=== PATIENT | female | born 2000 | race Caucasian/White ===

== ENCOUNTER 2021-04-14 12:44 | Emergency (ER) | payer OTHER ==
[~2021-04-14] VITALS: Ht 160 cm; Wt 89.2 kg
[2021-04-14] MEDS ORDERED: DROSPIRENONE-E1 EACH PO (13:01)
[2021-04-14] MEDS ORDERED: PANTOPRAZOLE SO40 MG PO (13:01)
== END 2021-04-14 15:05 | disposition home or self-care (01) ==
LOC: ED 12:44
DX: R10.11 Right upper quadrant pain (principal); R10.13 Epigastric pain; Z88.1 Allergy status to other antibiotic agents; Z79.899 Other long term (current) drug therapy
CPT/HCPCS: 80053; 81001; 83690; 84703; 85025; 96374; 96375; 99284-25; J1170; J2405; J7030

== ENCOUNTER 2021-08-01 18:58 | Emergency (ER) | payer OTHER ==
[~2021-08-01] VITALS: Ht 160 cm; Wt 88.9 kg
[~2021-08-01 18:58] MED LIST: DROSPIRENONE-E1 EACH PO; PANTOPRAZOLE SO40 MG PO
[2021-08-01] MEDS ORDERED: ESOMEPRAZOLE MA40 MG PO (19:13)
[2021-08-01] MEDS ORDERED: CYCLOBENZAPRINE10 MG PO (23:30)
--- NOTE | 2021-08-02 13:16 | EKG ---
[facility] [address] [facility] [place], [place] [address] Signed Sinus tachycardia Otherwise normal ECG No previous ECGs available Confirmed by SHARON NAGEL MD ([id number]) on 08/02/2021 1:15:52 PM Electronically Signed By: SHARON NAGEL MD 08/02/21 1316 PATIENT NAME: GIOVANNI WILLS Electrocardiogram DATE OF : [birth year] PHYSICIAN: SHARON NAGEL MD REPORT #: [id number] REPORT IS CONFIDENTIAL AND NOT TO BE RELEASED WITHOUT AUTHORIZATION
== END 2021-08-02 00:03 | disposition home or self-care (01) ==
LOC: ED 18:58
DX: R07.89 Other chest pain (principal); K21.9 Gastro-esophageal reflux disease without esophagitis; Z88.1 Allergy status to other antibiotic agents; Z79.899 Other long term (current) drug therapy
CPT/HCPCS: 36415; 71045; 71260; 80053; 83735; 84484; 84703; 85025; 85379; 93005; 93010; 99285-25; J2270; Q9967

== ENCOUNTER 2022-02-14 09:55 | Emergency (ER) | payer OTHER ==
[~2022-02-14] VITALS: Ht 160 cm; Wt 105.2 kg
[~2022-02-14 09:55] MED LIST changes: +CYCLOBENZAPRINE10 MG PO; +ESOMEPRAZOLE MA40 MG PO
[2022-02-14] MEDS ORDERED: MACROBID 100 M100 MG PO (12:42)
== END 2022-02-14 13:41 | disposition home or self-care (01) ==
LOC: ED 09:55
DX: O23.41 Unspecified infection of urinary tract in pregnancy, first trimester (principal); N39.0 Urinary tract infection, site not specified; O20.0 Threatened abortion; K21.9 Gastro-esophageal reflux disease without esophagitis; Z3A.01 Less than 8 weeks gestation of pregnancy; Z79.899 Other long term (current) drug therapy; Z88.1 Allergy status to other antibiotic agents
CPT/HCPCS: 36415; 76801; 76817; 81001; 84702; 86900; 86901; 87088; 96372; 99284-25; J2790

== ENCOUNTER 2023-06-13 23:01 | Observation (INO) | payer OTHER ==
[~2023-06-13] VITALS: Ht 160 cm; Wt 109.0 kg
[~2023-06-13 23:01] MED LIST changes: +MACROBID 100 M100 MG PO
[2023-06-13] MEDS ORDERED: IRON325 M1 PO (23:12)
[2023-06-13] MEDS ORDERED: OMEPRAZOLE20 MG PO (23:12)
[2023-06-13] MEDS ORDERED: SPRINTEC1 EACH PO (23:12)
[2023-06-13] MEDS ORDERED: SERTRALINE HCL100 MG PO (23:12)
[2023-06-13] MEDS ORDERED: ondansetron HCL 4 MG/2 ML VIAL IV ONE ×2 (23:15→23:30)
[2023-06-13 23:27] LABS: BASOPHILS 0.4 % (0-2); EOSINOPHILS 0.8 % (0-6); HEMATOCRIT 38.5 % (35.0-50.0); HEMOGLOBIN 12.3 g/dL (12.0-18.0); MCH 27.8 (27-36); MCHC 32.1 g/dl (30-36); MCV 86.6 fl (81-99); MONOCYTES 8.6 % (0-12); NEUTROPHILS 66.2 % (39-80); PLATELET COUNT 324 K/uL (140-440); RBC 4.44 M/ul (4.3-5.7); RDW 13.8 (10.5-15.0)
[2023-06-13] MEDS ORDERED: MORPHINE SULFATE 4 MG/ML VIAL IV ONE (23:30)
[2023-06-13] MEDS ORDERED: LACTATED RINGER'S 1,000 ML IV ONE (23:30)
[2023-06-13 23:43] LABS: ALBUMIN 2.4 g/dL (3.4-5.0); ALBUMIN/GLOBULIN RATIO 0.45 (1.1-2.4); ANION GAP 13.4 (7-21); BILIRUBIN, TOTAL 0.1 ng/dL (0.2-1.0); BUN/CREATININE RATIO 13.79 (6.0-28.6); CALCIUM 9.4 mg/dL (8.5-10.1); CREATININE, SERUM 0.58 mg/dL (0.55-1.02); POTASSIUM 3.4 mmol/L (3.5-5.1); PROTEIN, TOTAL 7.7 g/dL (6.4-8.2)
[2023-06-13 23:58] LABS: BILIRUBIN, URINE NEGATIVE (negative); BLOOD/HGB, URINE NEGATIVE (Negative); KETONE, URINE NEGATIVE (Negative); LEUK ESTERASE, URINE NEGATIVE (negative); NITRITE, URINE NEGATIVE (negative)
[2023-06-14] MEDS ORDERED: HYDROmorphone HCL 1 MG/ML SYR IV PRN ×3 (01:00→08:30)
[2023-06-14] MEDS ORDERED: DEXTROSE 5% - LACTATED RINGERS 1,000 ML IV SCH ×2 (01:15→08:30)
[2023-06-14] MEDS ORDERED: ondansetron HCL 4 MG/2 ML VIAL IV PRN ×2 (01:15→08:30)
[2023-06-14] MEDS ORDERED: ACETAMINOPHEN 325 MG TAB PO PRN ×2 (01:15→08:45)
[2023-06-14] MEDS ORDERED: levoFLOXacin 750 MG/150 ML BAG IV ONE (01:30)
--- NOTE | 2023-06-14 02:15 | NUR ---
PATIENT BROUGHT TO THE FLOOR FROM THE ER. REPORT GOT FROM LITA LYLES. PATIENT CURRENTLY NPO. ANTIBIOTICS SCHEDULED. PATIENT LAST AT 1800. PATIENT HAS BEEN RUNNING TACHY IN THE ER BUT WHEN SLEEPING IMPROVES PER REPORT GIVEN. PATIENT BROUGHT TO THE FLOOR IN A WHEELCHAIR. PATIENT WAS GIVEN DILADID IN THE ER.
[2023-06-14 02:19] VITALS: BP 127/62
--- NOTE | 2023-06-14 03:06 | NUR ---
PATIENT HAS SECOND BAG OF FLAGYL RUNNING CURRENTLY. PATIENT CAME UP FROM THE ER WITH IT. LEVOFLOXACIN WAS NOT STARTED IN THE ER AND WILL BE STARTED AFTER FLAGYL IS DONE.
[2023-06-14 03:07] VITALS: BP 127/62
--- NOTE | 2023-06-14 03:16 | NUR ---
PATIENT CURRENTLY ASLEEP IN BED LAYING ON HER BACK. IV FLUIDS AND ANTIBIOTICS RUNNING. PATIENT GIVEN FAN. CALL LIGHT WITHIN REACH. REGULAR RESPIRATIONS NOTED.
--- NOTE | 2023-06-14 04:16 | NUR ---
INTO CHECK ON PATIENTS IV SITE SHE ADVISED THAT WHEN SHE HAD HER BABY 8 MONTHS AGO SHE HAD COMPLICATIONS WITH THE IV SITE. IV SITE WORKING WELL, LOOKS WNL. PATIENT WOKE UP AND SHIFTED IN BED WHILE IN THERE. PATIENT ADVISE THIS NURSE SHE IS DOING WELL AND IS ABLE TO GET SOME SLEEP. PATIENT WILL CALL IF SHE NEEDS ANYTHING.
[2023-06-14 05:31] VITALS: BP 141/59
--- NOTE | 2023-06-14 05:32 | NUR ---
PT UTILIZES CALL LIGHT, REQUESTS TO USE THE BATHROOM. PT UP TO BATHROOM AND BACK TO BED WITH ASSISTANCE ONLY TO UNPLUG IV PUMP. PT DENIES FURTHER NEEDS AT THIS TIME. CALL LIGHT IN REACH.
--- NOTE | 2023-06-14 07:10 | NUR ---
RECEIVED REPORT FROM LITA KIMBROUGH. ASSUMING CARE OF PT. PT AWAKE IN BED, GETS UP INDEPENDENTLY TO USE RESTROOM. PT STATES NO FURTHER NEEDS AT THIS TIME, CALL LIGHT WITHIN REACH.
[2023-06-14] MEDS ORDERED: POTASSIUM CHLORIDE 40 MEQ,LIDOCAINE HCL 1% 40 MG in DEXTROSE 5% 500 ML IV ONE (07:30)
--- NOTE | 2023-06-14 07:45 | NUR ---
DR. ARDON AT THE BEDSIDE. PT FAMILY AT THE BEDSIDE. PT REQUESTS PRN PAIN MEDICATION, GIVEN. PT STATES NO FURTHER NEEDS AT THIS TIME, CALL LIGHT WITHIN REACH.
[2023-06-14] MEDS ORDERED: PROCHLORPERAZINE EDISYLATE 10 MG/2 ML VIAL IV PRN (08:30)
[2023-06-14] MEDS ORDERED: ENOXAPARIN SODIUM 40 MG/0.4 ML SYR SUB-Q SCH (09:00)
[2023-06-14] MEDS ORDERED: levoFLOXacin 500 MG/100 ML BAG IV SCH (09:00)
[2023-06-14] MEDS ORDERED: PANTOPRAZOLE SODIUM 40 MG/10 ML VIAL IV SCH (09:00)
--- NOTE | 2023-06-14 11:10 | NUR ---
PT AWAKE IN BED, BOYFRIEND AT THE BEDSIDE. A+O X3. PT REQUESTS PAIN MEDICATION, GIVEN. PT STATES SHE HAS CHIARI MALFORMATION WHICH CAUSES HER TO HAVE MIGRAINES WELL HAVE LESS SENSATION ON THE RIGHT SIDE OF HER BODY, PT STATES SHE DOES NOT HAVE NUMNESS OR TINGLING ANYWHERE AND THAT ALL SENSATION THIS MORNING IS BASELINE FOR HER. PT STATES SHE HAD A DVT IN THE ARM IN October, APPROXIMATELY ONE MONTH . PT STATES SHE HAD BEEN TREATED FOR THIS. SCDs PLACED PER ORDER. PT STATES NO FURTHER NEEDS AT THSI TIME, CALL LIGHT WITHIN REACH.
[2023-06-14 11:13] VITALS: BP 126/66
--- NOTE | 2023-06-14 12:15 | NUR ---
PT AWAKE IN BED, BOYFRIEND AT THE BEDSIDE. EMS ARRIVES TO TRANSFER PT. VSS. PT STATES SHE IS HAVING NAUSEA, GIVEN ANTINAUSEA MEDICATION. IV LEFT IN FOR SECOND HALF OF FLAGYL DOSE WHICH WAS GIVEN TO EMS. DISCHARGE PACKET AND REPORT GIVEN TO EMS. PT VERBALIZES UNDERSTANDING OF TRANSFER PROCESS, STATES ALL QUESTIONS HAVE BEEN ANSWERED. PT WHEELED OFF MEDSURG UNIT BY EMS ON STRETCHER.
--- NOTE | 2023-06-15 06:50 | DS ---
[facility] [address] [place], [place] [address] Signed ADMISSION DATE: 06/14/2023 DISCHARGE DATE: 06/14/2023 DIAGNOSES: 1. Acute appendicitis. 2. Type 1 Chiari malformation. PROCEDURES: 1. CT scan of abdomen and pelvis. 2. CT scan of head and neck. HISTORY OF PRESENT ILLNESS: Giovanni is a 23-year-old young lady, who had developed rather significant headaches in her teenage years. She had been to see various doctors. Eventually she was scanned and found to have type 1 Chiari malformation. She says she has trouble with hot and cold sensation in the right arm and sometimes feels some electrical shocks down her right arm. She follows along with her neurosurgeon, Dr. Ryan Bella in [place], [place]. She goes every year. Chiari malformation can progressively get worse and so she was receiving scans every year. On this last scan, she has done well and apparently, she has been stable. Dr. Bella felt she might not need a scan every year. Last summer in September of 2022, she was and did have a for her 1st child. It was recommended apparently by Dr. Bella and her sex crimes detective that she not have her baby at a small 25-bed critical access hospital. Our closest neurosurgeons are at our [facility] and then down in [place] at [facility] as well. She and her boyfriend chose to go down to [place] [facility]. She was given the option of general anesthetic versus spinal for the . She chose the spinal and did very well. Yesterday about 5 hours prior to coming to the emergency room, she developed upper abdominal pain that localized to the right lower quadrant with nausea, some diarrhea and tachycardia. She was tender in the right lower quadrant with a white count of 14.6. Beta-hCG was negative. CT scan showed some hyperemia to the appendix along with a little periappendiceal stranding. I have been asked to admit her in the middle of the night as a general surgeon on-call. Unfortunately, she did not mention any of this detail with respect to her Chiari malformation to the ER physician. HOSPITAL COURSE: Giovanni was admitted overnight with IV fluids and Levaquin and Flagyl. She was given some pain medication. This morning, when I came, she and her boyfriend had gave this detail about her type 1 Chiari malformation. We did look it up as well. We have been talking with our anesthesia providers along with Kadekhanh Julián. It was felt that she would probably be better served at a tertiary referral center if indeed she needed neurosurgical monitoring and/or a neurosurgical consult. We had good talk with Electronically Signed By: OLGA ARDON MD 06/15/23 0650 PATIENT NAME: GIOVANNI WILLS DISCHARGE SUMMARY DATE OF : [birth year] REPORT #: [id number] PHYSICIAN: OLGA ARDON MD PCP: HORACE CASTRO MD REPORT IS CONFIDENTIAL AND NOT TO BE RELEASED WITHOUT AUTHORIZATION [facility] [address] [place], [place] [address] Signed Greg Hamilton, who is one of the general surgeons at [facility] in [place], [place]. He was kind enough to accept her in transfer. We are now making those arrangements for Giovanni. DISCHARGE PLANS AND MEDICATIONS: Giovanni is going to head down to [facility] in [place], [place], most likely by ambulance. She is not going to receive any prescriptions or medications from us. Of course, I am happy to help her here locally as a general surgeon for her postsurgical followup to save her additional trips to [place]. I have reviewed this with Giovanni and her boyfriend. They have expressed understanding and agreed with the above plan. In the meantime, we look forward to input from Dr. Hamilton and his team. Olga Ardon MD [facility] /[id number] cc: MD Dr. Ryan Suarez Dr. Copies: OLGA ARDON MD ~ Electronically Signed By: OLGA ARDON MD 06/15/23 0650 PATIENT NAME: GIOVANNI WILLS DISCHARGE SUMMARY DATE OF : [birth year] REPORT #: [id number] PHYSICIAN: OLGA ARDON MD PCP: HORACE CASTRO MD REPORT IS CONFIDENTIAL AND NOT TO BE RELEASED WITHOUT AUTHORIZATION
--- NOTE | 2023-06-15 06:50 | CONS ---
[facility] [address] [place], [place] [address] Signed DATE OF CONSULTATION: 06/14/2023 CHIEF COMPLAINT: Right lower quadrant abdominal pain. HISTORY OF PRESENT ILLNESS: Giovanni is a 23-year-old obese female, who had developed upper abdominal pain about 5 hours prior to the emergency room. It then localized in the right lower quadrant. She had some nausea and diarrhea. She felt like her heart was going fast. She was found to be tachycardic and tender in the right lower quadrant. White blood cell count was elevated. Beta-hCG was negative. CT scan showed slight hyperemia of the appendix with some periappendiceal stranding. It appears that her liver function tests were also a little elevated, probably from fatty liver. There were no findings of the gallbladder or the liver on the CT scan. I had been asked to admit her as a general surgeon rayon winder last night. She developed hives with Keflex, so we gave her Levaquin and Flagyl. We also learned that her son was born via on September 30, 2022 at [facility] in [place], [place]. She had a spinal for that procedure and did well. She is not . PAST MEDICAL HISTORY: 1. Gastroesophageal reflux disease. 2. Type 1 Chiari malformation, migraines, right upper extremity paresthesias that are hot and cold with occasional shooting pain, obesity. PAST SURGICAL HISTORY: Includes the in September 30, 2022 at [facility] in [place], [place] with a spinal and IV sedation. SOCIAL HISTORY: She does not smoke or drink. She has a boyfriend. Her son is John who is now 8 months old. She does not feel her parents were particularly responsible so she has her maternal aunt, Saloni Monson, as her adjuster electrical contacts at [phone]. Dr. Staci Castro is her primary care provider. She prefers the [facility] pharmacy. Dr. Ryan Bella is her neurosurgeon in [place], [place]. FAMILY HISTORY: A maternal grandfather had cancer. REVIEW OF SYSTEMS: She had 10 systems reviewed and we had a long discussion about type 1 Chiari malformation. She is classic and came into her teenage years with severe headaches and then some symptoms in her right upper extremity. In due time with imaging, she was discovered to have the type 1 Chiari malformation. She follows along with her Electronically Signed By: OLGA ARDON MD 06/15/23 0650 PATIENT NAME: GIOVANNI WILLS CONSULTATION DATE OF : [birth year] REPORT #: [id number] PHYSICIAN: OLGA ARDON MD PCP: STACI CASTRO MD REPORT IS CONFIDENTIAL AND NOT TO BE RELEASED WITHOUT AUTHORIZATION [facility] [address] [place], [place] [address] Signed neurosurgeon, Dr. Ryan Bella. She was receiving scans every year because sometimes these do get worse. Dr. Bella felt it was not getting worse, maybe slightly better and he did not feel she needed to continue her annual scans as of this year. Nevertheless, when she did get for her son, it was recommended by all her physicians including her water treatment plant operator that she go to [facility] in [place], [place] to have specialist available to her in the event there would be an issue. She and her boyfriend are very aware of this recommendation. Unfortunately, they did not seem to mention it to our ER physician last night. ALLERGIES: Ginette gives her hives. MEDICATIONS: 1. Sertraline 100 mg p.o. daily. 2. Iron sulfate 325 mg p.o. daily. 3. Omeprazole 20 mg p.o. daily. 4. Oral contraceptive pill. PHYSICAL EXAMINATION: VITAL SIGNS: Her blood pressure is 141/59, heart rate is 108, which is down from the 140s, respiratory rate 12, temperature is 97.9, she is 100% on room air. She is 5 feet 3 inches at 109 kg with a body mass index of 42. GENERAL: Giovanni is a 23-year-old lady lying supine in her hospital bed with her boyfriend in the room. She does not appear systemically ill or toxic. LUNGS: Generally clear to auscultation bilaterally. HEART: Regular rate and rhythm without murmurs. ABDOMEN: Obese but soft. She is tender in the right lower quadrant around McBurney's point. LABORATORY DATA: Her white blood cell count is 14.6, hemoglobin is 12, neutrophils 66. Potassium slightly low at 3.4. UA was negative. Beta-hCG negative. Lactic acid was 1.4. Her total bilirubin is 0.1, but the AST is a little high at 82, ALT up a little at 236, alkaline phosphatase a little up at 120, albumin slightly low at 2.4, lipase normal at 34. RADIOGRAPHIC STUDIES: The CT scan of the abdomen and pelvis is reviewed and she has some slight hyperemia to the appendix with some mild periappendiceal stranding. ASSESSMENT AND PLAN: Giovanni is a 23-year-old female, who presents with what appears to be early acute appendicitis. She has been admitted and started on Levaquin and Flagyl and made n.p.o. with some IV fluids. She was given some pain control. However, she has this issue with Electronically Signed By: OLGA ARDON MD 06/15/23 0650 PATIENT NAME: GIOVANNI WILLS CONSULTATION DATE OF : [birth year] REPORT #: [id number] PHYSICIAN: OLGA ARDON MD PCP: STACI CASTRO MD REPORT IS CONFIDENTIAL AND NOT TO BE RELEASED WITHOUT AUTHORIZATION [facility] [address] [place] [id number] Signed type 1 Chiari malformation with some symptoms involving her right upper extremity along with her headaches. It has been recommended to her by her neurosurgeon in the past as well as her other physicians including her water treatment plant operator that she seek out a higher level of care when in need of surgery. Our [facility] does have neurosurgeons, but she chose [facility] in [place], [place] as a tertiary level of care. Nevertheless, she did have a spinal and IV sedation for the . That probably would not be enough to help her through an appendectomy. More than likely, she will need to be asleep. She would be thacker to seek out a higher level of care for her appendicitis as she did her . I have spoken with Giovanni, her boyfriend and our anesthesia provider and I think we are all in agreement in that regard. We are going to talk to our nurse night shift supervisor and will see if we can contact [facility] and will proceed from there. They have expressed understanding and agreed with the above plan. Olga Ardon MD [facility] /[id number] cc: MD Dr. Ryan [address] Dr. Copies: OLGA ARDON MD ~ Electronically Signed By: OLGA ARDON MD 06/15/23 0650 PATIENT NAME: GIOVANNI WILLS CONSULTATION DATE OF : [birth year] REPORT #: [id number] PHYSICIAN: OLGA ARDON MD PCP: STACI CASTRO MD REPORT IS CONFIDENTIAL AND NOT TO BE RELEASED WITHOUT AUTHORIZATION
--- NOTE | 2023-06-15 23:18 | EKG ---
[facility] [address] [facility] [place], [place] [address] Signed Sinus tachycardia Nonspecific T wave abnormality Confirmed by Monroe Li M.D. ([id number]) on 06/15/2023 11:17:52 PM Electronically Signed By: MONROE LI MD 06/15/23 2318 PATIENT NAME: GIOVANNI WILLS Electrocardiogram DATE OF : [birth year] PHYSICIAN: MONROE LI MD REPORT #: [id number] REPORT IS CONFIDENTIAL AND NOT TO BE RELEASED WITHOUT AUTHORIZATION
== END 2023-06-14 12:15 | disposition short-term general hospital (02) ==
LOC: ED 23:01 → MS 23:03
PROVIDERS: Family Medicine; ADMIT Colon & Rectal Surgery; ATTEND Colon & Rectal Surgery
DX: K35.80 Unspecified acute appendicitis (principal); G93.5 Compression of brain; K21.9 Gastro-esophageal reflux disease without esophagitis; Z88.1 Allergy status to other antibiotic agents
CPT/HCPCS: 36415; 70450; 74177; 80053; 81003; 83605; 83690; 84703; 85025; 93005; 93010; C9113; J1170; J1650; J1956; J2270; J2405; J3480; J3490; J7060; J7121

== ENCOUNTER 2023-10-22 11:10 | Emergency (ER) | payer OTHER ==
[~2023-10-22] VITALS: Ht 160 cm; Wt 114.2 kg
[~2023-10-22 11:10] MED LIST changes: +IRON325 M1 PO; +OMEPRAZOLE20 MG PO; +SERTRALINE HCL100 MG PO; +SPRINTEC1 EACH PO
[2023-10-22 11:34] LABS: BILIRUBIN, URINE NEGATIVE (negative); BLOOD/HGB, URINE NEGATIVE (Negative); KETONE, URINE NEGATIVE (Negative); LEUK ESTERASE, URINE TRACE (negative); NITRITE, URINE NEGATIVE (negative)
[2023-10-22 11:46] LABS: BACTERIA, URINE NONE SEEN /hpf (negative); CASTS, URINE NONE SEEN \\lpf; COLLECTION TYPE, URINE CLEAN CATCH; CRYSTALS, URINE NONE SEEN (0-1+); EPITHELIAL CELLS, URINE SQUAMOUS 2+ /lpf (0-1+); RED BLOOD CELLS, URINE 0-1 /hpf (0-5); REFLEX CULTURE, URINE No (No)
[2023-10-22] MEDS ORDERED: SODIUM CHLORIDE 0.9% 1,000 ML IV ONE (12:15)
[2023-10-22 12:30] LABS: BASOPHILS 0.3 % (0-2); EOSINOPHILS 0.6 % (0-6); HEMATOCRIT 43.9 % (35.0-50.0); HEMOGLOBIN 14.5 g/dL (12.0-18.0); LYMPHOCYTES 18.1 % (24-44); MCH 30.1 (27-36); MCHC 32.9 g/dl (30-36); MCV 91.4 fl (81-99); MONOCYTES 4.8 % (0-12); NEUTROPHILS 76.2 % (39-80); PLATELET COUNT 228 K/uL (140-440); RBC 4.81 M/ul (4.3-5.7)
[2023-10-22 12:46] LABS: ALBUMIN 3.4 g/dL (3.4-5.0); ALBUMIN/GLOBULIN RATIO 0.69 (1.1-2.4); ANION GAP 10.7 (7-21); BILIRUBIN, TOTAL 0.4 ng/dL (0.2-1.0); BUN/CREATININE RATIO 14.1 (6.0-28.6); CALCIUM 9.1 mg/dL (8.5-10.1); CREATININE, SERUM 0.78 mg/dL (0.55-1.02); POTASSIUM 3.7 mmol/L (3.5-5.1); PROTEIN, TOTAL 8.3 g/dL (6.4-8.2)
[2023-10-22] MEDS ORDERED: ondansetron HCL 4 MG/2 ML VIAL IV ONE (13:45)
[2023-10-22] MEDS ORDERED: KETOROLAC TROMETHAMINE 30 MG/ML VIAL IV ONE (13:45)
[2023-10-22] MEDS ORDERED: ONDANSETRON ODT8 MG PO (15:21)
[2023-10-22 15:31] VITALS: BP 115/64
== END 2023-10-22 15:33 | disposition home or self-care (01) ==
LOC: ED 11:10
PROVIDERS: Emergency Medicine
DX: R10.9 Unspecified abdominal pain (principal); K21.9 Gastro-esophageal reflux disease without esophagitis; Z88.1 Allergy status to other antibiotic agents; Z79.899 Other long term (current) drug therapy
CPT/HCPCS: 36415; 76705; 80053; 81001; 83690; 84703; 85025; 96361; 96374; 96375; 99284; J1885; J2405; J7030